=== PATIENT | female | born 1975 | race Caucasian/White ===

== ENCOUNTER 2018-08-22 17:22 | Emergency (ER) | payer OTHER, SELFPAY ==
[2018-08-22 17:22] VITALS: BP 123/76; PULSE 71; RESP 16; TEMP 36.1; O2SAT 99; BMI 26.2
--- NOTE | 2018-08-22 17:45 | US_ITS ---
STUDY: ULTRASOUND OF THE FEMALE PELVIS - COMPLETE REASON FOR EXAM: Female, 42 years old. Left lower quadrant pain TECHNIQUE: Transabdominal and endovaginal TECHNICAL QUALITY: Adequate. COMPARISON: None. FINDINGS: The uterus is anteverted and is in a midline position. The uterus measures 8.0 x 4.7 x 3.8 cm. Mild fluid in the cervical canal. The endometrium measures approximately 3 mm and not well-defined. There is a 1.3 cm cystic structure or focal fluid in the lower endometrial segment. There is no demonstrated myometrial mass. The patient does not have an I.U.D. The right ovary is visualized. The right ovary measures 4.8 x 2.9 x 3.3 cm. There is no right ovarian cyst or ovarian mass. There is no visualized right adnexal mass or complex lesion. There is normal arterial and normal venous vascularity. The left ovary is visualized. The left ovary measures 3.6 x 2.5 x 2.1 cm. There are left ovarian cysts measuring up to 1.6 cm. There is normal arterial and normal venous vascularity. There is no fluid in the cul-de-sac. US/Transvaginal Non- IMPRESSION: Mild focal fluid or cystic structure in the lower endometrial segment. Mild fluid in cervical canal. Left ovarian cysts. Electronically Signed: Julián Washington DO at 19:15 EDT Tel [phone], Service support ,
--- NOTE | 2018-08-22 17:49 | ED.DCSUM_ITS ---
- ER Visit Summary Date of Service: 08/22/18 Chief Complaint: Abdominal pain History of Present Illness: The patient is a 42 F presenting with left lower quadrant abdominal pain. She states this started while at work suddenly a few hours ago. Pain is similar to previous ovarian cysts and endometriosis. She has nausea with no vomiting. She denies diarrhea or constipation. Denies urinary complaints. Denies fever. Denies other complaints. Physical Examination: Vitals are stable. Patient is afebrile. Alert no acute distress. HEENT exam is unremarkable. Neck is supple. Lungs are clear and equal bilaterally. Heart is regular rate and rhythm. Abdomen is soft left lower quadrant tenderness with no rebound or guarding Extremities are unremarkable. Skin is warm and dry. Remainder of exam is unremarkable. Emergency Department Course and Treatment: Patient was given morphine, Zofran IV. HCG negative. Urinalysis unremarkable. CBC, chemistries unremarkable. Pelvic ultrasound shows mild focal fluid or cystic structure in the lower endometrial segment. Mild fluid in cervical canal. Left ovarian cysts. Patient continued to have pain and was given additional morphine and Toradol with improvement. 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 Advised return to ED if worsening complaints. Disposition: Discharge home Impression: Left ovarian cyst This note was generated with [employer] dictation software. It may contain incorrect words, spelling, and punctuation that were not noted in review of the chart prior to signing ED Disposition - Plan for ED Patient: Instructions: ED Cyst Ovarian Prescriptions: Hydrocodone Bitart/Apap 5-325 [[place] 5MG-325MG] 1 tablet PO Q6H PRN PRN 3 Days #10 tablet PRN Reason: Pain Referrals: Neo Joshua III, MD [Primary Care Provider] -
[2018-08-22] MEDS: 0.9% Normal Saline 1,000 ML 1000 ML IV (17:59)
[2018-08-22 18:02] LABS: Bacteria 0 SEEN /hpf (None Seen); Mucous, Urine 0 SEEN /hpf (<or=2+); Red Blood Cells-Urine 0 SEEN /hpf (0-5); White Blood Cells 0 SEEN /hpf (0-5)
[2018-08-22] MEDS: Ondansetron 4 MG/2 ML Vial IV (18:02)
[2018-08-22] MEDS: Morphine 4 MG/ML Syringe IV ×2 (18:02→19:25)
[2018-08-22 18:09] LABS: Color, Urine Yellow (Yellow); Glucose, Dipstick Normal (Normal); Ketone-Dipstick Negative (Negative); Leukocyte Esterase-Dipstick Negative /ul (Negative); Nitrite-Dipstick Negative (Negative); Occult Blood-Urine Negative /ul (Negative); Protein-Dipstick Negative (Negative); Urine Bilirubin Dipstick Negative (Negative); Urine Clarity Clear (Clear); Urine Urobilinogen Normal (Normal)
[2018-08-22 18:13] LABS: Internal QC Validated? YES +Cl - CLEAR BKGD; Pregnancy, Urine Negative Negative
[2018-08-22 18:15] LABS: Squamous Epithelial Cells - UA 0-5 SEEN /hpf (5-10)
[2018-08-22 18:29] LABS: Absolute Lymphocyte Count 3.12 X10^3/ul (0.83-4.51); Absolute Neutrophil Count 5.3 X10^3/uL (2.0-7.7); Basophil# 0.03 X10^3/uL; Basophil% 0.3 % (0-1); Eosinophil# 0.23 X10^3/uL; Eosinophils% 2.5 % (0-5); Hematocrit 40.1 % (37-47); Hemoglobin 13.1 g/dl (12.0-15.0); Lymphocyte # 3.12 X10^3/ul (4.0); Lymphocyte % 34.2 % (19-41); Mean Corp Hgb Conc 32.7 g/gl (32-36); Mean Corpuscular Hgb 29.9 pg (27.0-32.0); Mean Corpuscular Volume 91.6 fL (81-99); Mean Platelet Vol. 10.7 fl (6.2-12.0); Monocyte# 0.43 X10^3/uL; Monocyte% 4.7 % (0-10); Neutrophil # 5.31 X10^3/uL (2.7-7.7); Neutrophil % 58.2 % (47-70); POSITIVE COUNT NO; POSITIVE DIFFERENTIAL NO; POSITIVE MORPHOLOGY NO; Platelet Count 392 K/mm3 (150-450); RBC Distribution Width CV 13.8 % (11.6-14.6); RBC Distribution Width SD 46.2 fl (35.1-43.9); Red Blood Count 4.38 M/mm3 (4.2-5.4); White Blood Count 9.1 K/mm3 (4.4-11.0)
[2018-08-22 18:42] LABS: Anion Gap 6 (5-15); BUN 20 mg/dL (7-18); BUN/Creat Ratio 28.3 RATIO (10-20); Calcium,Total 9.1 mg/dL (8.5-10.1); Chloride 104 mmol/L (98-107); Creatinine, Serum 0.71 mg/dL (0.55-1.02); EST Glomerular Filtration Rate 95 mL/min (>60); Est Glom Filt Rate - Afr Amer 115 mL/min (>60); Estimated Creatinine Clearance 83.64 ml/min; Glucose 86 mg/dL (74-106); Potassium 4.1 mmol/L (3.5-5.1); Sodium Level 138 mmol/L (136-145)
[2018-08-22] MEDS: Ketorolac 15 MG/ML Vial IV (19:25)
[2018-08-22 19:31] VITALS: BP 126/78; PULSE 66; RESP 17; O2SAT 98
--- NOTE | 2018-08-22 19:50 | ED.DEP ---
ED Disposition - Plan for ED Patient: Instructions: ED Cyst Ovarian Prescriptions: Hydrocodone Bitart/Apap 5-325 [[place] 5MG-325MG] 1 tablet PO Q6H PRN PRN 3 Days #10 tablet PRN Reason: Pain Referrals: Neo Joshua III, MD [Primary Care Provider] -
[2018-08-22 19:53] VITALS: BP 118/71; PULSE 64; RESP 17; O2SAT 98
== END 2018-08-22 20:07 | disposition home or self-care (01) ==
LOC: ED 17:50
PROVIDERS: Emergency Provider Emergency Medicine; Family Provider Family Medicine; PCP Family Medicine
DX: N83.202 Unspecified ovarian cyst, left side (principal)
CPT/HCPCS: 76830; 80048; 81001; 81025; 85025; 93976; 96361; 96374; 96375; 96376; 99283; J7030; A4216; J2405

== ENCOUNTER 2018-09-24 19:04 | Emergency (ER) | payer OTHER, SELFPAY ==
[2018-09-24 19:05] VITALS: BP 135/78; PULSE 95; RESP 15; TEMP 36.9; BMI 26.2
--- NOTE | 2018-09-24 19:20 | ED.VIS.GEN ---
History of Present Illness Chief Complaint: Foreign Body Informant: Patient Onset: Today Context: Sudden Onset Timing: Continuous Quality: Bug Location: Left external auditory canal Current Severity: Mild Maximum Severity: Moderate Worsened by: Hears clicking Relieved by: Nothing Associated Symptoms: Mild discomfort Narrative: Patient presents because relatives saw a bug left external auditory canal. She believes it is clicking. She also complains of pressure behind her ear. She denies URI symptoms. She denies headache. She denies ringing or ears. She denies problems with her TMJ joint. She denies dental pain. Prior similar symptoms: No Recent Illness/Hospitalization: No - Past Medical History (1) No significant past medical history Status: Acute Past Medical History - Allergies and Home Meds Allergies/Adverse Reactions: Allergies acetaminophen [From Percocet] Allergy (Verified 09/24/18 19:06) Other azithromycin Allergy (Verified 09/24/18 19:06) Other clarithromycin [From Biaxin] Allergy (Verified 09/24/18 19:06) Other etodolac Allergy (Verified 09/24/18 19:06) Rash lactose Allergy (Verified 09/24/18 19:06) Other meloxicam Allergy (Verified 09/24/18 19:06) Swelling oxycodone [From Percocet] Allergy (Verified 09/24/18 19:06) Other Penicillins Allergy (Verified 09/24/18 19:06) Other Sulfa (Sulfonamide Antibiotics) Allergy (Verified 09/24/18 19:06) Other Primary Care Physician: Neo Joshua III, MD [Primary Care Provider] - Prior records reviewed: No Surgical History: noncontributory Lives: With Family Smoking Status: Never smoker Review of Systems General: Denies: Chills, Fever, Malaise Eyes: Denies: Visual changes - bilaterally, Blurred Vision - bilaterally ENT: Reports: Left ear pain. Denies: Right ear pain, Rhinorrhea, Sore throat Gastrointestinal: Denies: Nausea Musculoskeletal: Denies: Myalgias, Arthralgias, Neck pain Skin: Denies: Rash, Wounds Neurological: Denies: Headache Physical Exam Vital Signs/Narrative: Vital Signs Temp Pulse Resp BP 09/24/18 19:05 98.5 F 95 15 135/78 H Inital Vital Signs reviewed: Yes General: Well nourished, Well developed, No Acute Distress Head: Normocephalic, Atraumatic Eyes: Perrl, EOMI. Negative for: Pale conjunctiva, Scleral icterus, - ENT: Moist mucous membranes, No rhinorrhea, TM's clear - No foreign body or insect noted. There is evidence of serous otitis on the left. Neck: Supple, Nontender Cardiovascular: Regular rate, Regular rhythm, No murmurs Respiratory: No distress Neurological: Alert, Oriented x3 Psychological: Normal affect, Normal Mood Diagnostic/Tx/Re-eval - Medical Decision Making Patient was informed that there is no insect or bug in her ear presently. The cause of the pressure sensation is fluid behind her eardrum. Since there is no evidence of infection antibiotic's are not indicated. ED Disposition - Plan for ED Patient: Disposition: Home or Assisted Living Diagnosis: Acute serous otitis media, left ear Instructions: ED Otitis Media Serous Adult Referrals: Neo Joshua III, MD [Primary Care Provider] - 3-5 Days if not improving
[2018-09-24 19:34] VITALS: BP 135/78; PULSE 95; RESP 15; O2SAT 97
== END 2018-09-24 19:35 | disposition home or self-care (01) ==
PROVIDERS: Emergency Provider Emergency Medicine; Family Provider Family Medicine; PCP Family Medicine
DX: H65.02 Acute serous otitis media, left ear (principal)
CPT/HCPCS: 99282

== ENCOUNTER → 2019-05-08 13:47 | Outpatient (CLI) | payer OTHER, SELFPAY ==
[2019-05-07 12:11] VITALS: BMI 26.2
[2019-05-08 14:45] LABS: Mucous, Urine 0 SEEN /hpf (<or=2+); Red Blood Cells-Urine 0 SEEN /hpf (0-5)
[2019-05-08 15:10] LABS: Color, Urine Yellow (Yellow); Glucose, Dipstick Normal (Normal); Ketone-Dipstick Negative (Negative); Leukocyte Esterase-Dipstick 500 /ul (Negative); Nitrite-Dipstick Negative (Negative); Occult Blood-Urine 10 /ul (Negative); Protein-Dipstick Negative (Negative); Urine Bilirubin Dipstick Negative (Negative); Urine Clarity Cloudy (Clear); Urine Urobilinogen Normal (Normal)
[2019-05-08 16:27] LABS: Bacteria 4+ /hpf (None Seen); Squamous Epithelial Cells - UA 0-5 SEEN /hpf (5-10); White Blood Cells 25-50 SEEN /hpf (0-5)
== END ==
PROVIDERS: Family Provider Family Medicine; PCP Family Medicine; Referring Provider Physician Assistant Medical; Visit Provider Physician Assistant Medical
DX: N30.01 Acute cystitis with hematuria (principal)
CPT/HCPCS: 81001; 87086; 87088; 87186

== ENCOUNTER 2023-03-22 11:39 | Emergency (ER) | payer OTHER, SELFPAY ==
[2023-03-22 11:41] VITALS: BP 126/83; PULSE 70; RESP 18; TEMP 36.6; O2SAT 100; BMI 30.4
[2023-03-22 13:01] VITALS: TEMP 36.6; O2SAT 100
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
== END 2023-03-22 13:24 | disposition home or self-care (01) ==
PROVIDERS: Emergency Provider Emergency Medicine; PCP Family Medicine; Visit Provider Emergency Medicine
DX: S39.012A Strain of muscle, fascia and tendon of lower back, initial encounter (principal); S16.1XXA Strain of muscle, fascia and tendon at neck level, initial encounter; V53.5XXA Driver of pick-up truck or van injured in collision with car, pick-up truck or van in traffic accident, initial encounter
CPT/HCPCS: 99282